=== PATIENT | male | born 1985 | race Caucasian/White ===

== ENCOUNTER 2017-08-24 00:29 | Emergency (ER) | payer SELFPAY ==
[~2017-08-24] VITALS: Ht 167.6 cm; Wt 63.6 kg
[2017-08-24 00:59] VITALS: Ht 167.6 cm; Wt 63.6 kg
[2017-08-24] MEDS ORDERED: ULTRAM50 MG PO (02:32)
[2017-08-24 02:49] VITALS: BP 129/87
== END 2017-08-24 02:49 | disposition home or self-care (01) ==
LOC: D.ER 00:29
DX: S93.401A Sprain of unspecified ligament of right ankle, initial encounter (principal); W22.8XXA Striking against or struck by other objects, initial encounter; Y93.89 Activity, other specified; Y92.019 Unspecified place in single-family (private) house as the place of occurrence of the external cause; F17.200 Nicotine dependence, unspecified, uncomplicated